=== PATIENT | male | born 1970 | race Caucasian/White ===

== ENCOUNTER → 2020-07-20 | Outpatient (CLI) | payer BC ==
--- NOTE | 2020-07-20 09:51 | Diagnostic Imaging Report ---
INDICATION: Hypertension. TECHNIQUE: Multiple real-time grayscale images were obtained over the kidneys in various projections bilaterally. Duplex Doppler and color Doppler images were also obtained. FINDINGS: Right kidney measures 13 x 5.8 x 7.3 cm. Left kidney measures 15 x 6.6 x 7.1 cm. Both kidneys demonstrate relatively normal renal cortical thickness and echogenicity. There are bilateral renal cysts. Largest is on the right measures 5.5 cm. Spectral analysis of the renal arteries shows no evidence of significant renal artery stenosis. There is no hydronephrosis or calculi. IMPRESSION: Bilateral renal cysts otherwise unremarkable renal ultrasound. Specifically there is no evidence of renal artery stenosis. Dictated by: Dictated on workstation # [id number]
== END ==
LOC: RAD 08:00
PROVIDERS: ATTEND Physician Assistant
DX: N28.1 Cyst of kidney, acquired (principal); I10 Essential (primary) hypertension
CPT/HCPCS: 76770; 93975

== ENCOUNTER → 2020-07-27 | Outpatient (CLI) | payer BC | LOC: CARD 12:00 | PROVIDERS: ATTEND Internal Medicine Cardiovascular Disease | DX: I51.7 Cardiomegaly (principal) | CPT/HCPCS: 93306 ==

== ENCOUNTER → 2020-08-04 | Outpatient (CLI) | payer BC ==
[~2020-08-04] VITALS: Ht 182 cm; Wt 143.0 kg
[~2020-08-04] MED LIST: REGADENOSON 0.4 MG/5 ML SYR (LEXISCAN) IV ONE
[2020-08-04] MEDS: CATHETER FLUSH 10 ML SYR IV PRN ×2 (08:05→08:09)
[2020-08-04 09:28] VITALS: BP 243/102
--- NOTE | 2020-08-04 17:28 | STRESS TEST ---
DATE OF SERVICE: 08/04/2020 RESTING AND POST REGADENOSON TECHNETIUM-99M TETROFOSMIN SPECT CT IMAGING ORDERING PHYSICIAN: Dr. Mac. PRIMARY PHYSICIAN: CUONG Canchola. CLINICAL DIAGNOSES: Abnormal electrocardiogram and hypertension. Baseline images were carried out after injection of 10.98 mCi of technetium-99m Tetrofosmin. This was followed by 0.4 mg of Regadenoson and 31 mCi of technetium-99m Tetrofosmin for SPECT imaging. The electrocardiogram showed sinus bradycardia, voltage for left ventricular hypertrophy and diffuse, nonspecific ST abnormality. The electrocardiogram did not change significantly with the Regadenoson infusion. The patient tolerated the procedure well and did not report symptoms. Review of images at rest and following stress indicates cardiomegaly with left ventricular end-diastolic volume 241 mL. There does not appear to be distinct evidence of significant myocardial ischemia. Left ventricular ejection fraction is calculated to be 65%. TID is absent (1.06). CONCLUSIONS: 1. Significant cardiomegaly. 2. Well preserved global left ventricular systolic function with a calculated ejection fraction of 65%. 3. This study does not indicate significant myocardial ischemia or infarction. 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
== END ==
LOC: CARD 08:30
PROVIDERS: ATTEND Internal Medicine Cardiovascular Disease
DX: I11.9 Hypertensive heart disease without heart failure (principal); R94.31 Abnormal electrocardiogram [ECG] [EKG]
CPT/HCPCS: 78452; 93017; A9502

== ENCOUNTER 2020-10-29 12:37 | Outpatient (CLI) | payer BC ==
[2020-10-29] MEDS ORDERED: RT-ALBUTEROL SULF 2.5 MG/3 ML PRE-MIX VIAL INH ONE (13:00)
== END 2020-10-29 14:15 | disposition home or self-care (01) ==
LOC: RT 12:37
PROVIDERS: ATTEND Nurse Practitioner Family
DX: G47.30 Sleep apnea, unspecified (principal); G47.10 Hypersomnia, unspecified; G47.50 Parasomnia, unspecified; R06.00 Dyspnea, unspecified
CPT/HCPCS: 94060; 94726; 94729; G0399